=== PATIENT | female | born 1950 | race American Indian/Alaskan Native ===

== ENCOUNTER 2019-05-28 10:50 | Day surgery (SDC) | payer OTHER ==
[2019-05-28] MEDS ORDERED: NACL 0.9% 1000 ML 1,000 ML IV SCH (12:00)
--- NOTE | 2019-05-28 12:44 | Anesthesia Consultation ---
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
--- NOTE | 2019-05-28 12:44 | Anesthesia Day of Surgery ---
Anesthesia Day of Surgery - Day of Surgery Patient Examined: Yes Patient H&P Reviewed: Yes Patient is NPO: Yes
[2019-05-28] MEDS ORDERED: DIPRIVAN 10 MG/ML IV ONE ×2 (13:09)
[2019-05-28] MEDS ORDERED: WATER FOR IRRIG STERILE IR ONE (13:10)
[2019-05-28] MEDS ORDERED: WATER FOR IRRIG STERILE ONE (13:10)
--- NOTE | 2019-05-28 13:31 | Discharge Summary ---
Short Stay Discharge Plan Activity: advance as tolerated Weight Bearing Status: Weight Bear as Tolerated Diet: regular Follow up with: [facility] [Primary Care Provider] - 7 Days
--- NOTE | 2019-05-28 13:36 | Operative Report ---
Operative Report Operative Report: Procedure: Colonoscopy with biopsy polypectomy and polyp ablation. Attending physician: Hamilton Valencia M.D. Tunneling Machine Operator: Hamilton Valencia M.D. Indication: Patient is a 68-year-old female who presents for evaluation with a colonoscopy, because of recent history of acute diverticulitis status post treatment with interval resolution of symptoms. This colonoscopy serves to evaluate patient so that treatment may be directed based on the findings. Consent: Informed consent was obtained after advising the patient and family regarding nature of this procedure, its indications, potential benefits as well as possible complications including but not limited to bleeding perforation and adverse reaction to medication, infection as well as other cardiopulmonary complications. An informed written and verbal consent was then obtained after due opportunity was provided for questions and answers. Monitoring: Patient was monitored continuously with pulse oximetry and electrocardiographic recordings as well as blood pressure recordings. Vital signs remained stable throughout this procedure with no untoward events. Preoperative assessment: Patient was assessed immediately prior to this procedure for capacity to tolerate monitored anesthesia care and moderate sedation as well as general anesthesia. Patient's ASA classification is 2, Mallampati class is 2, Hyomental distance is 3. Instrument: Olympus video colonoscope CF-HQ 190L Medications: Propofol given intravenously in divided doses. For details please refer to anesthesia records. Description of procedure: Patient was placed in the left lateral decubitus position after achieving sedation, a digital rectal examination was performed fo llowing which the colonoscope was introduced into the anal verge and advanced to the cecum which was identified by the cecal valve, the appendiceal orifice, as well as by the cecal strap and direct transillumination. The colonoscope was subsequently withdrawn with careful inspection of all mucosal surfaces. Patient tolerated this procedure well and was subsequently taken to the recovery room. The following findings were noted. Findings: [place] bowel preparation scale score : 3. : Patient had densely adherent thick liquid stool in all segments of the colon. The overall preparation therefore deemed inadequate with a scale score of less than 6. The withdrawal time from the cecum was greater than 6 minutes. Patient had severe diverticulosis involving the cecum, ascending colon, kumar sverse colon, descending colon and sigmoid colon. Patient had a broad-based flat 6 mm polyp in the sigmoid colon which was removed by hot biopsy polypectomy and the base of the polyp ablated. On a retroflexed view of the anal verge, patient had internal hemorrhoids. Impression: Diminutive sigmoid colon polyp status post hot biopsy polypectomy and ablation Inadequate colonoscopic preparation with retained stool. Severe tomas colonic Diverticulosis. Internal hemorrhoids. Plan: Follow pathology report. High-fiber diet. Although no significant gross mucosal abnormalities were seen other than the diminutive polyp in the sigmoid colon, a repeat colonoscopy should be considered in 6-12 months due to poor colonoscopic preparation.
[2019-05-28] MEDS ORDERED: XYLOCAINE MPF 2% ONE (14:00)
[2019-05-28 14:40] VITALS: BP 143/86
== END 2019-05-28 10:51 | disposition home or self-care (01) ==
LOC: GIO 10:50
PROVIDERS: ATTEND Internal Medicine Gastroenterology
DX: K63.5 Polyp of colon (principal); K63.89 Other specified diseases of intestine; K57.30 Diverticulosis of large intestine without perforation or abscess without bleeding; K57.13 Diverticulitis of small intestine without perforation or abscess with bleeding; K64.8 Other hemorrhoids; F17.210 Nicotine dependence, cigarettes, uncomplicated; E78.00 Pure hypercholesterolemia, unspecified; I10 Essential (primary) hypertension; K21.9 Gastro-esophageal reflux disease without esophagitis; Z90.710 Acquired absence of both cervix and uterus; Z98.890 Other specified postprocedural states; Z79.899 Other long term (current) drug therapy; Z86.73 Personal history of transient ischemic attack (TIA), and cerebral infarction without residual deficits
CPT/HCPCS: 45384; 88305; J2704; J7030